=== PATIENT | male | born 1965 | race American Indian/Alaskan Native ===

== ENCOUNTER 2021-08-29 14:07 | Emergency (ER) | payer MEDICAID ==
[2021-08-29 15:40] VITALS: BP 119/81
--- NOTE | 2021-08-29 16:50 | XRay Report ---
CHEST 2 VIEWS INDICATION / CLINICAL INFORMATION: Chest Pain/hx lung CA. COMPARISON: None available. FINDINGS: SUPPORT DEVICES: None. HEART / MEDIASTINUM: No significant abnormality. LUNGS / PLEURA: There is a large round mass in the left midlung, measuring up to 14.0 x 12.0 x 11.3 c m. The remainder of the lung rodriguez are clear. No pleural effusion. No pneumothorax. ADDITIONAL FINDINGS: No significant additional findings. IMPRESSION: 1. Large round mass in the left midlung in this patient with reported history of lung cancer. Signer Name: Dora Gutierrez MD Signed: 08/29/2021 4:46 PM Workstation Name: [id number]
[2021-08-29] MEDS ORDERED: LACTATED RINGERS 1,000 ML IV ONE (18:02)
[2021-08-29] MEDS ORDERED: HYDROmorphone 1 MG/1 ML INJ IV ONE (18:02)
--- NOTE | 2021-08-29 18:03 | Emergency Department Report ---
ED General Adult HPI - General Chief complaint: Pain General Stated complaint: i need my medication refilled PUI?: No Time Seen by Provider: 08/29/21 17:48 Source: patient, RN notes reviewed Mode of arrival: Ambulatory Limitations: No Limitations - History of Present Illness Initial comments: The patient was evaluated in the emergency department for symptoms described in the history of present illness. He/she was evaluated in the context of the global COVID-19 pandemic, which necessitated consideration that the patient migh t be at risk for infection with the virus that causes COVID-19. Institutional protocols and algorithms that pertain to the evaluation of patients at risk for COVID-19 are in a state of rapid change based on information released by regulatory bodies including the CDC and federal and state organizations. These policies and algorithms were followed during the patient's care in the emergency department. Please note that these policies, procedures and recommendations changed on a rapid basis. The patient is a 56-year-old gentleman, with a newly established diagnosis of lung cancer, who recently relocated from [facility] to the local area, who reports that he was recently hospitalized at [facility] for new onset lung cancer. He has paperwork with him from this hospital, and is requesting a refill on oxycodone tablets. He complains of left lateral and anterior thoracic rib pain, near ribs 4 5 and 6, which is constant, but getting worse over the past few days. He denies headache, neck pain, central chest pain, exertional chest pain, vomiting, diaphoresis, hematemesis and bright red blood per rectum. His pain is constant, and typically decreases with the pain medication. He has yet to establish outpatient care locally with hematology oncology, and pain specialist. -: days(s) Location: left (Lateral rib cage) Radiation: non-radiation Consistency: constant Improves with: other Worsens with: other - Related Data Previous Rx's Medication Instructions Recorded Last Taken Type Acetaminophen [Non-Aspirin Extra 500 mg PO Q6HR PRN #30 tablet 08/29/21 Unknown Rx Strength] Ibuprofen [Motrin] 600 mg PO Q8H PRN #30 tablet 08/29/21 Unknown Rx Oxycodone HCl [oxyCODONE] 10 mg PO Q6H PRN #15 tab 08/29/21 Unknown Rx Allergies Allergy/AdvReac Type Severity Reaction Status Date / Time No Known Allergies Allergy Verified 08/29/21 15:36 ED Review of Systems ROS: Stated complaint: CHEST PAIN Other details as noted in HPI Constitutional: denies: fever Eyes: denies: eye discharge ENT: denies: epistaxis Respiratory: denies: wheezing Cardiovascular: other (Left lateral rib cage pain). denies: orthopnea, syncope Gastrointestinal: denies: abdominal pain, hematemesis, melena, hematochezia Musculoskeletal: arthralgia Neurological: denies: weakness Hematological/Lymphatic: denies: easy bleeding ED Past Medical Hx - Past Medical History Previous Medical History?: Yes Hx Hypertension: Yes Additional medical history: lung CA - Surgical History Past Surgical History?: No - Medications Home Medications: Home Medications Medication Instructions Recorded Confirmed Last Taken Type Acetaminophen [Non-Aspirin Extra 500 mg PO Q6HR PRN #30 tablet 08/29/21 Unknown Rx Strength] Ibuprofen [Motrin] 600 mg PO Q8H PRN #30 tablet 08/29/21 Unknown Rx Oxycodone HCl [oxyCODONE] 10 mg PO Q6H PRN #15 tab 08/29/21 Unknown Rx ED Physical Exam - General Limitations: No Limitations General appearance: alert, in no apparent distress - Head Head exam: Present: atraumatic, normocephalic - Eye Eye exam: Present: normal appearance, EOMI. Absent: nystagmus - ENT ENT exam: Present: normal exam, normal orophraynx, mucous membranes moist, normal external ear exam - Neck Neck exam: Present: normal inspection, full ROM. Absent: tenderness, meningismus - Respiratory Respiratory exam: Present: chest wall tenderness, decreased breath sounds. Absent: respiratory distress, wheezes, rales, rhonchi, stridor - Cardiovascular Cardiovascular Exam: Present: regular rate, normal rhythm, normal heart sounds. Absent: bradycardia, tachycardia, irregular rhythm, systolic murmur, diastolic murmur, rubs, gallop - GI/Abdominal GI/Abdominal exam: Present: soft. Absent: distended, tenderness, guarding, rebo und, rigid, pulsatile mass - Rectal Rectal exam: Present: deferred - Extremities Exam Extremities exam: Present: normal inspection, full ROM, other (2+ pulses noted in the bilateral upper and lower extremities. There is no palpable cord. negative Homans sign. Muscular compartments are soft. The pelvis is stable.). Absent: pedal edema, calf tenderness - Back Exam Back exam: Present: normal inspection, full ROM. Absent: tenderness, CVA tenderness (R), CVA tenderness (L), paraspinal tenderness, vertebral tenderness - Neurological Exam Neurological exam: Present: alert, oriented X3, normal gait, other (No facial droop. Tongue midline. Extraocular movements intact bilaterally. Facial sensation intact to light touch in V1, V2, V3 distribution bilaterally. 5 and a 5 strength in 4 extremities. Sensation intact to light touch in 4 extremities.). Absent: motor sensory deficit - Psychiatric Psychiatric exam: Present: normal affect, normal mood - Skin Skin exam: Present: warm, dry, intact, normal color. Absent: rash ED Course Vital Signs 08/29/21 15:36 Temperature 98.3 F Pulse Rate 78 Respiratory 16 Rate Blood Pressure 119/81 [Left] O2 Sat by Pulse 98 Oximetry - Reevaluation(s) Reevaluation #1: 08/29/21 18:55 Differential diagnosis, include but not limited to: Costochondritis, cancer pain, lung cancer, pulmonary embolism Assessment and plan: 56-year-old gentleman with a known established history of lung cancer, who presents to the ER with a complaint of worsening left lateral thoracic and rib cage pain, directly correlating to where he has known lung cancer. He does not appear to be superinfected. He is not currently tachycardic, tachypneic or hypoxic, and denies leg pain or leg swelling. This is most likely cancer pain. However, given known history of lung cancer, report of recent hospitalization at [facility], we will obtain CT scan of the chest to exclude pulmonary embolism. We will treat this patient's pain aggressively here in the emergency room. Given that he is an active cancer patient, I am compassionate for this patient's difficult situation, and have advised him that we can give a small prescription for oxycodone. However, he will need to closely follow-up with outpatient primary care, pulmonology, pain specialist, and hematology oncology for definitive care. He has articulated understanding. Laboratory studies pending. CT scan of the chest is pending 08/29/21 21:09 Patient resting comfortably in chair. Leukocytosis on laboratory studies likely secondary to known history of malignancy. CT scan of chest demonstrates known lung cancer. No pulmonary embolism or pneumonia is identified. Patient updated on findings. He is suitable for discharge with outpatient follow-up. Return precautions reviewed ED Medical Decision Making - Lab Data Result diagrams: 08/29/21 17:48 08/29/21 17:48 Vital Signs 08/29/21 15:36 Temperature 98.3 F Pulse Rate 78 Respiratory 16 Rate Blood Pressure 119/81 [Left] O2 Sat by Pulse 98 Oximetry Lab Results 08/29/21 Range/Units 18:18 Magnesium 1.80 (1.7-2.3) mg/dL Total Creatine Kinase 26 L (55-170) units/L - EKG Data -: EKG Interpreted by Ar EKG shows normal: sinus rhythm Rate: normal - EKG Data When compared to previous EKG there are: previous EKG unavailable 08/29/21 18:53 The EKG is interpreted at 15: 24 Sinus rhythm, rate 78 bpm. Normal axis, normal P wave axis, QTC 4 3 7 ms. Not a STEMI. Motion artifact. Abnormal EKG - Radiology Data Radiology results: pending, report reviewed, image reviewed CHEST 2 VIEWS INDICATION / CLINICAL INFORMATION: Chest Pain/hx lung CA. COMPARISON: None available. FINDINGS: SUPPORT DEVICES: None. HEART / MEDIASTINUM: No significant abnormality. LUNGS / PLEURA: There is a large round mass in the left midlung, measuring up to 14.0 x 12.0 x 11.3 cm. The remainder of the lung rodriguez are clear. No pleural effusion. No pneumothorax. ADDITIONAL FINDINGS: No significant additional findings. IMPRESSION: 1. Large round mass in the left midlung in this patient with reported history of lung cancer. Signer Name: Dora Gutierrez MD Signed: 08/29/2021 3:46 PM Workstation Name: [id number] CTA CHEST WITH IV CONTRAST INDICATION: chest pain/sob/hx lung CA. TECHNIQUE: Axial CT images were obtained through the chest after injection of IV contrast. 3 plane MIP reconstructions were produced. All CT scans at this location are performed using CT dose reduction for ALARA by means of automated exposure control. COMPARISON: None available. FINDINGS: PULMONARY ARTERIES: No pulmonary emboli. THORACIC AORTA: No acute abnormality. HEART: Normal. CORONARY ARTERIES: No significant calcification. PLEURA: No pleural effusion. No pneumothorax. LYMPH NODES: No significant adenopathy. LUNGS: Large solid 13 cm left upper lobe pulmonary mass with invasion of the left anterior chest wall. No osseous rib destruction. Moderate confluent pulmonary emphysema. ADDITIONAL FINDINGS: None. UPPER ABDOMEN: No acute findings. SKELETAL STRUCTURES: No significant osseous abnormality. IMPRESSION: 1. No CT evidence for pulmonary embolism. 2. Large 13 cm left upper lobe pulmonary mass with left anterior chest wall invasion with history of known lung cancer Signer Name: Shiv Rosales MD Signed: 08/29/2021 7:47 PM Workstation Name: [id number] Critical care attestation.: If time is entered above; I have spent that time in minutes in the direct care of this critically ill patient, excluding procedure time. ED Disposition Clinical Impression: Lung cancer, Cancer associated pain, Rib pain on left side Disposition: 03 LONG TERM FACILITY Is pt being admited?: No Does the pt Need Aspirin: No Condition: Good Instructions: Lung Cancer, Chest Wall Pain Additional Instructions: Do not take metformin medication for the next 2 days if this patient takes the medication. Please take the prescribed pain medications as needed and directed. Recommend follow-up with an outpatient primary care doctor, such as Dr. Perry, within the next 2 weeks. Recommend follow-up with hematology rn radiation oncology for lung cancer, such as Dr. Coates, within the next 2 weeks. Recommend follow-up with a veneer glue spreader for lung cancer, within the next 2 weeks, such as Dr. Pires Recommend follow-up with a pain specialist within the next month. Please return to the emergency room right away with new pain, worsened pain, migration of pain, projectile vomiting, change in mental status, confusion, inability tolerate liquid feeds, new, worsened or different symptoms not present on the initial emergency room evaluation Please have an outpatient primary care doctor, veneer glue spreader, or hematology rn radiation oncology contact [facility] medical records, and [facility] medical records to obtain copies of your pertinent laboratory studies and imaging studies to coordinate outpatient care Prescriptions: Ibuprofen [Motrin] 600 mg PO Q8H PRN #30 tablet PRN Reason: Pain Acetaminophen [Non-Aspirin Extra Strength] 500 mg PO Q6HR PRN #30 tablet PRN Reason: Pain , Severe (7-10) Oxycodone HCl [oxyCODONE] 10 mg PO Q6H PRN #15 tab PRN Reason: Pain Referrals: FARHAT PIRES MD [Staff Physician] - 3-5 Days DUSTY COATES MD [Staff Physician] - 3-5 Days JOHN PERRY MD [Staff Physician] - 3-5 Days Forms: Work/School Release Form(ED)
[2021-08-29 19:09] LABS: INR 1.09 (0.87-1.13)
[2021-08-29 19:10] LABS: Partial Thromboplastin Time 35.3 Sec. (24.2-36.6)
[2021-08-29 19:33] LABS: Hematocrit 34.4 % (35.5-45.6); Hemoglobin 10.8 gm/dl (11.8-15.2); Mean Corpuscular HGB Conc 31 % (32-34); Mean Corpuscular Volume 86 fl (84-94); Platelet Count 373 K/mm3 (140-440); Red Blood Count 4.01 M/mm3 (3.65-5.03); Red Cell Distribution Width 16.9 % (13.2-15.2)
[2021-08-29 19:38] LABS: Alanine Aminotransferase 6 units/L (7-56); BUN/Creatinine Ratio 10; Blood Urea Nitrogen 10 mg/dL (9-20); Calcium 8.7 mg/dL (8.4-10.2); Hemolysis Index 1
--- NOTE | 2021-08-29 20:52 | Cat Scan Report ---
CTA CHEST WITH IV CONTRAST INDICATION: chest pain/sob/hx lung CA. TECHNIQUE: Axial CT images were obtained through the chest after injection of IV contrast. 3 plane MIP reconstru ctions were produced. All CT scans at this location are performed using CT dose reduction for ALARA b y means of automated exposure control. COMPARISON: None available. FINDINGS: PULMONARY ARTERIES: No pulmonary emboli. THORACIC AORTA: No acute abnormality. HEART: Normal. CORONARY ARTERIES: No significant calcification. PLEURA: No pleural effusion. No pneumothorax. LYMPH NODES: No significant adenopathy. LUNGS: Large solid 13 cm left upper lobe pulmonary mass with invasion of the left anterior chest wall . No osseous rib destruction. Moderate confluent pulmonary emphysema. ADDITIONAL FINDINGS: None. UPPER ABDOMEN: No acute findings. SKELETAL STRUCTURES: No significant osseous abnormality. IMPRESSION: 1. No CT evidence for pulmonary embolism. 2. Large 13 cm left upper lobe pulmonary mass with left anterior chest wall invasion with history of known lung cancer Signer Name: Shiv Rosales MD Signed: 08/29/2021 8:47 PM Workstation Name: [id number]
[2021-08-29] MEDS ORDERED: oxyCODONE /ACETAMINOPHEN 5-325MG TAB PO ONE (21:04)
[2021-08-30 02:02] LABS: Anisocytosis 1+; Basophils % (Manual) 0 % (0.0-1.8); Platelet Estimate Consistent w Auto; Total Cells Counted 200
--- NOTE | 2021-08-30 11:00 | Electrocardiograph Report ---
[facility] Test Date: 2021-08-29 Test Time: 15:24:36 Pat Name: JOVITA MAURICIO Department: Room: Gender: M Online Activist: MALDONADO : 1965 Requested By: ARIE ZENDEJAS Order Number: [id number] Reading MD: Luca Jaquez Measurements Intervals [place] Rate: 78 P: 80 NM: 121 QRS: 64 QRSD: 83 T: 81 QT: 383 QTc: 437 Interpretive Statements Sinus rhythm No previous ECG available for comparison Electronically Signed On 08-30-2021 11:00:31 EST by Luca Jaquez
--- NOTE | 2021-08-31 09:57 | Electrocardiograph Report ---
[facility] Test Date: 2021-08-29 Test Time: 18:16:44 Pat Name: JOVITA MAURICIO Department: ED Room: Gender: M [employer] Writer: MALDONADO : 1965 Requested By: EMMA SCHULER Order Number: [id number] Reading MD: Luca Jaquez Measurements Intervals [place] Rate: 96 P: 83 [place]: 143 QRS: 52 QRSD: 81 T: 73 QT: 351 QTc: 443 Interpretive Statements Sinus rhythm compared with ECG of 08/29/21, no significant change Electronically Signed On 08-31-2021 9:57:06 EST by Luca Jaquez
== END 2021-08-31 09:49 ==
LOC: ED 14:07
DX: C34.90 Malignant neoplasm of unspecified part of unspecified bronchus or lung (principal); I10 Essential (primary) hypertension; Z79.899 Other long term (current) drug therapy; R79.1 Abnormal coagulation profile
CPT/HCPCS: 36415; 71046; 71275; 80053; 82550; 83735; 84484; 85007; 85025; 85379; 85610; 85730; 93005; 93010; 96361; 96374; 99284; J1170; J7120; Q9967